=== PATIENT | male | born 1970 | race Two or more races ===

== ENCOUNTER 2019-08-14 06:16 | Inpatient (IN) | payer MEDICARE ==
[~2019-08-14] VITALS: Ht 165.1 cm; Wt 68.2 kg
[2019-08-14] VITALS (56 sets, daily range): BP systolic 99–142; BP diastolic 40–97
[2019-08-14] MEDS ORDERED: SODIUM CHLORIDE 0.9% 1,000 ML IV ONE (06:41)
[2019-08-14] MEDS ORDERED: LEVETIRACETAM 1000MG/100ML 100 ML IV ONE (06:45)
[2019-08-14] MEDS ORDERED: DEXAMETHASONE 10 MG/ML VIAL IV ONE (07:30)
[2019-08-14] MEDS ORDERED: DILTIAZEM HCL 5MG/ML 5ML VIAL IV ONE (07:45)
[2019-08-14 07:55] LABS: BASOPHILS % 0.9 % (0.0-2.0); EOSINOPHILS % 0.6 % (0.0-5.0); HEMATOCRIT. 49.6 % (42.0-52.0); HEMOGLOBIN. 16.3 g/dL (14.0-18.0); LYMPHOCYTES % 20.1 % (20.0-50.0); MEAN CORPUSCULAR HEMOGLOBIN 28.4 pg (28.0-32.0); MEAN CORPUSCULAR VOLUME 86.4 fL (80.0-94.0); MEAN PLATELET VOLUME 8.6 fl (7.4-10.4); MONOCYTES % 6.8 % (2.0-8.0); NEUTROPHILS % 71.6 % (40.0-76.0); PLATELET 199 x1000/uL (130-400); RED BLOOD CELL COUNT 5.74 mill/uL (4.7-6.1); RED CELL DISTRIBUTION WIDTH 13.8 % (11.6-14.6)
[2019-08-14 08:02] LABS: INR 1.1
[2019-08-14 08:04] LABS: CHLORIDE 105 mEq/L (98-107)
[2019-08-14 08:08] LABS: ETHANOL BLOOD < 10 mg/dL
[2019-08-14 08:13] LABS: CREATINE KINASE 122 IU/L (39-308)
[2019-08-14 08:15] LABS: VALPROIC ACID < 3.0 ug/mL (50-100)
[2019-08-14 08:25] LABS: CARBAMAZEPINE < 0.5 ug/mL (4-12); PHENOBARBITAL < 2.1 ug/mL (15.0-40.0)
[2019-08-14] MEDS ORDERED: LEVETIRACETAM 500MG PREMIX 100 ML IV SCH (09:00)
[2019-08-14] MEDS ORDERED: MANNITOL 12.5G (25%) VIAL 50ML IV ONE ×2 (09:15→09:45)
[2019-08-14] MEDS: DEXT 5%/LACTATED RINGERS 1,000 ML IV SCH (09:59)
[2019-08-14] MEDS ORDERED: NICARDIPINE 100 MG in SODIUM CHLORIDE 0.9% 60 ML IV PRN (11:00)
[2019-08-14] MEDS ORDERED: DILTIAZEM HCL 5MG/ML 5ML VIAL IV NR (11:30)
[2019-08-14] MEDS: DEXAMETHASONE 4MG/ML 1ML VIAL IV SCH ×2 (11:35→18:04)
[2019-08-14 11:54] LABS: BG BASE EXCESS -0.6 mmol/L (-2.0-2.0); BG CARBOXYHEMOGLOBIN 0.1 % (0.5-1.5); BG DEOXYHEMOGLOBIN 2.9 % (0.0-5.0); BG FRACTION INSPIRED OXYGEN 21; BG HCO3 ACT 23.5 mmol/L (22.0-26.0); BG METHEMOGLOBIN 0.5 % (0.0-1.5); BG OXYGEN SATURATION 97.1 % (92.0-98.5); BG OXYHEMOGLOBIN 96.5 % (94.0-97.0); BG PCO2 37.8 mmHg (35.0-45.0); BG PH 7.412 (7.350-7.450); BG PO2 91.5 mmHg (75.0-100.0); BG SAMPLE SITE RIGHT RADIAL; BG TOTAL HEMOGLOBIN 18.2 g/dL (12.0-18.0); BG VENT MODE ROOM AIR
[2019-08-14] MEDS ORDERED: DEXAMETHASONE 4MG/ML 1ML VIAL IV SCH (12:00)
[2019-08-14] MEDS ORDERED: DILTIAZEM HCL 125 MG in DEXT 5% WATER 100 ML IV ONE (12:30)
[2019-08-14] MEDS ORDERED: LACTULOSE 300 ML in WATER FOR IRRIGATION,STERILE 700 ML IR NR (12:30)
[2019-08-14] MEDS ORDERED: IOHEXOL-350 100 ML BOTTLE ONE (12:42)
[2019-08-14] MEDS ORDERED: GADOBENATE DIMEGLUMINE 529 MG/ML 10ML IV ONE (13:54)
[2019-08-14] MEDS: DILTIAZEM HCL 125 MG in DEXT 5% WATER 100 ML IV SCH (15:00)
[2019-08-14] MEDS ORDERED: DEXTROSE 50% WATER 50ML SYRINGE IV PRN (16:45)
[2019-08-14] MEDS: BLOOD SUGAR DIAGNOSTIC STRIP TEST SCH ×2 (17:00→21:08)
[2019-08-14] MEDS: INSULIN LISPRO 100 UNITS/ML SUBCUT SCH ×2 (18:05→21:00)
[2019-08-14] MEDS: LEVETIRACETAM 500MG in SODIUM CHLORIDE 0.9% 100ML IV SCH (21:08)
[2019-08-15] VITALS (73 sets, daily range): BP systolic 92–188; BP diastolic 56–124
[2019-08-15] MEDS: DEXAMETHASONE 4MG/ML 1ML VIAL IV SCH ×4 (00:46→19:59)
[2019-08-15] MEDS: MORPHINE SULFATE 2 MG/ML CPJ (NOT FOR IM USE) IV PRN ×2 (01:24→12:04)
[2019-08-15] MEDS: BLOOD SUGAR DIAGNOSTIC STRIP TEST SCH ×2 (05:49→18:00)
[2019-08-15] MEDS: DEXT 5%/LACTATED RINGERS 1,000 ML IV SCH (05:57)
[2019-08-15] MEDS: INSULIN LISPRO 100 UNITS/ML SUBCUT SCH ×2 (06:00→20:00)
[2019-08-15] MEDS ORDERED: NITROGLYCERIN 50MG PREMIX 0 ML IV ONE (06:05)
[2019-08-15] MEDS ORDERED: LIDOCAINE HCL/PF 1% 10 MG/ML 5ML VIAL ONE ×2 (06:06→13:54)
[2019-08-15] MEDS ORDERED: PROPOFOL 200MG/20ML VIAL IV ONE ×2 (06:08→13:38)
[2019-08-15] MEDS ORDERED: ROCURONIUM BROMIDE 10MG/ML VIAL 5ML IV ONE (06:09)
[2019-08-15] MEDS ORDERED: FENTANYL CITRATE/PF 50MCG/ML 2ML VIAL ONE ×2 (06:10→07:06)
[2019-08-15 06:17] LABS: CHLORIDE 106 mEq/L (98-107)
[2019-08-15] MEDS ORDERED: BACITRACIN 15GM TUBE TOP ONE ×2 (06:25→17:19)
[2019-08-15] MEDS ORDERED: THROMBIN (BOVINE) 5000 UNITS/VIAL TOP ONE ×4 (06:25→16:03)
[2019-08-15] MEDS ORDERED: LIDOCAINE HCL/EPINEPHRINE 1%-EPI 1:100,000 20 ML VIAL ONE (06:26)
[2019-08-15] MEDS ORDERED: BACITRACIN 50,000 UNITS/VIAL ONE (06:26)
[2019-08-15] MEDS ORDERED: MANNITOL 20% 0 ML IV ONE (06:27)
[2019-08-15] MEDS ORDERED: LEVETIRACETAM 500 MG IV ONE (06:27)
[2019-08-15 06:30] LABS: HEMOGLOBIN. 16.6 g/dL (14.0-18.0); MEAN CORPUSCULAR HEMOGLOBIN 28.7 pg (28.0-32.0); MEAN CORPUSCULAR VOLUME 86.2 fL (80.0-94.0); MEAN PLATELET VOLUME 8.9 fl (7.4-10.4); PLATELET 223 x1000/uL (130-400); RED CELL DISTRIBUTION WIDTH 13.9 % (11.6-14.6)
[2019-08-15 06:31] LABS: T4 FREE 1.11 ng/dL (0.76-1.46)
[2019-08-15] MEDS ORDERED: MIDAZOLAM HCL 2 MG/2 ML VIAL ONE (07:05)
[2019-08-15] MEDS ORDERED: EPHEDRINE SULFATE 50MG/ML VIAL ONE ×2 (07:08→15:44)
[2019-08-15] MEDS ORDERED: SODIUM CHLORIDE 0.9% 10ML VIAL ONE ×5 (07:09→16:54)
[2019-08-15 08:42] LABS: PLATELET ESTIMATE NORMAL
[2019-08-15] MEDS: LEVETIRACETAM 500MG in SODIUM CHLORIDE 0.9% 100ML IV SCH ×2 (08:59→20:20)
[2019-08-15] MEDS: DILTIAZEM HCL 125 MG in DEXT 5% WATER 100 ML IV SCH (09:39)
[2019-08-15 11:06] LABS: PHOSPHORUS 3.2 mg/dL (2.5-4.9)
[2019-08-15] MEDS ORDERED: POTASSIUM CHLORIDE INJ 40 MEQ in SODIUM CHLORIDE 0.9% 250 ML IV NR (12:00)
[2019-08-15] MEDS ORDERED: LIDOCAINE HCL 1% 20ML VIAL (Pyxis) INJ ONE (13:10)
[2019-08-15] MEDS ORDERED: SODIUM BICARBONATE 4% (2.4MEQ) 5ML VIAL IV ONE ×2 (13:11→15:59)
[2019-08-15] MEDS ORDERED: FENTANYL CITRATE/PF 50MCG/ML 5ML VIAL ONE (13:37)
[2019-08-15] MEDS ORDERED: PHENYLEPHRINE HCL 10 MG/ML 1ML (IV VIAL) IV ONE ×2 (13:42→13:46)
[2019-08-15] MEDS ORDERED: CEFAZOLIN SODIUM 1000MG/VIAL ONE (13:43)
[2019-08-15] MEDS ORDERED: LABETALOL HCL 5MG/ML VIAL 20ML IV ONE (13:46)
[2019-08-15] MEDS ORDERED: MANNITOL 20% 500 ML IV ONE (13:49)
[2019-08-15] MEDS ORDERED: FUROSEMIDE 40MG/4ML VIAL ONE (13:49)
[2019-08-15] MEDS ORDERED: PROPOFOL 10MG/ML 100ML 100 ML IV ONE (15:28)
[2019-08-15 15:32] LABS: BG CARBOXYHEMOGLOBIN 0.3 % (0.5-1.5); BG DEOXYHEMOGLOBIN 0.9 % (0.0-5.0); BG FRACTION INSPIRED OXYGEN 100; BG HCO3 ACT 16.8 mmol/L (22.0-26.0); BG METHEMOGLOBIN 0.2 % (0.0-1.5); BG OXYHEMOGLOBIN 98.6 % (94.0-97.0); BG PH 7.412 (7.350-7.450); BG PO2 440.4 mmHg (75.0-100.0); BG SAMPLE SITE A-LINE; BG TOTAL HEMOGLOBIN 12.5 g/dL (12.0-18.0); BG VENT MODE VENT - A/C
[2019-08-15] MEDS ORDERED: ALBUMIN HUMAN 12.5G/250ML (5%) IV ONE ×2 (15:32→16:27)
[2019-08-15] MEDS ORDERED: SODIUM BICARBONATE 8.4% 1 MEQ/ML 50ML SYR IV ONE (15:58)
[2019-08-15] MEDS ORDERED: DEXMEDETOMIDINE 400 MCG/100 ML 100 ML IV ONE (16:15)
[2019-08-15] MEDS ORDERED: ALBUMIN HUMAN 12.5GM/50ML (25%) IV ONE (16:29)
[2019-08-15] MEDS ORDERED: ONDANSETRON HCL 4MG/2ML INJ ONE (16:51)
[2019-08-15] MEDS ORDERED: BUPIVACAINE HCL 0.5% (5MG/ML) 50ML ONE (16:52)
[2019-08-15] MEDS ORDERED: HYDROMORPHONE HCL/PF 2MG/ML (OR) ONE (16:53)
[2019-08-15] MEDS ORDERED: BUPIVACAINE HCL/PF 0.25% (2.5MG/ML) 10ML ONE (16:54)
[2019-08-15] MEDS ORDERED: METOCLOPRAMIDE HCL 10MG/2ML VIAL ONE (16:55)
[2019-08-15] MEDS ORDERED: GLYCOPYRROLATE 0.2 MG/ML 2ML VIAL ONE (17:01)
[2019-08-15] MEDS ORDERED: NEOSTIGMINE METHYLSULFATE 1MG/ML 10 ML VIAL ONE (17:01)
[2019-08-15] MEDS ORDERED: LEVETIRACETAM 500MG PREMIX 100 ML IV ONE (17:13)
[2019-08-15] MEDS ORDERED: NICARDIPINE 100 MG in SODIUM CHLORIDE 0.9% 60 ML IV PRN (17:30)
[2019-08-15] MEDS: MORPHINE SULFATE 4 MG/ML CPJ (NOT FOR IM USE) IV PRN (19:44)
[2019-08-15] MEDS: CEFAZOLIN 1000MG PREMIX 50 ML IV SCH (19:59)
[2019-08-15 21:02] LABS: HEMATOCRIT 35.8 % (42.0-52.0); HEMOGLOBIN 11.9 g/dL (14.0-18.0)
[2019-08-15] MEDS ORDERED: CEFAZOLIN SODIUM 1000MG/VIAL IV SCH (22:00)
[2019-08-16] VITALS (93 sets, daily range): BP systolic 2–168; BP diastolic 0–95
[2019-08-16] MEDS: MORPHINE SULFATE 4 MG/ML CPJ (NOT FOR IM USE) IV PRN ×7 (00:16→22:51)
[2019-08-16] MEDS: BLOOD SUGAR DIAGNOSTIC STRIP TEST SCH ×4 (00:32→18:30)
[2019-08-16] MEDS: DEXAMETHASONE 4MG/ML 1ML VIAL IV SCH ×4 (00:35→17:16)
[2019-08-16] MEDS: INSULIN LISPRO 100 UNITS/ML SUBCUT SCH ×4 (00:35→17:17)
[2019-08-16] MEDS: DEXT 5%/LACTATED RINGERS 1,000 ML IV SCH ×2 (01:59→21:59)
[2019-08-16] MEDS: CEFAZOLIN 1000MG PREMIX 50 ML IV SCH ×3 (04:05→21:03)
[2019-08-16] MEDS: NICARDIPINE 100 MG in SODIUM CHLORIDE 0.9% 60 ML IV PRN (04:38)
[2019-08-16 06:22] LABS: CHLORIDE 114 mEq/L (98-107)
[2019-08-16 06:37] LABS: HEMATOCRIT. 35.6 % (42.0-52.0); HEMOGLOBIN. 11.9 g/dL (14.0-18.0); MEAN CORPUSCULAR HEMOGLOBIN 28.4 pg (28.0-32.0); MEAN CORPUSCULAR VOLUME 85.4 fL (80.0-94.0); MEAN PLATELET VOLUME 9.1 fl (7.4-10.4); PLATELET 184 x1000/uL (130-400); RED BLOOD CELL COUNT 4.17 mill/uL (4.7-6.1); RED CELL DISTRIBUTION WIDTH 13.8 % (11.6-14.6)
[2019-08-16] MEDS ORDERED: MANNITOL 20% (20GM/100ML) BAG 500ML PREMIX IV ONE (06:45)
[2019-08-16] MEDS ORDERED: MANNITOL 20% 125 ML IV ONE (06:45)
[2019-08-16] MEDS ORDERED: DEXAMETHASONE 10 MG/ML VIAL IV ONE (07:00)
[2019-08-16] MEDS ORDERED: MANNITOL 12.5G (25%) VIAL 50ML IV ONE (07:30)
[2019-08-16 08:17] LABS: BG CARBOXYHEMOGLOBIN 0.3 % (0.5-1.5); BG DEOXYHEMOGLOBIN 0.9 % (0.0-5.0); BG FRACTION INSPIRED OXYGEN 100; BG HCO3 ACT 20.1 mmol/L (22.0-26.0); BG METHEMOGLOBIN 0.5 % (0.0-1.5); BG OXYGEN SATURATION 99.1 % (92.0-98.5); BG OXYHEMOGLOBIN 98.3 % (94.0-97.0); BG PCO2 30.4 mmHg (35.0-45.0); BG PH 7.439 (7.350-7.450); BG PO2 426.3 mmHg (75.0-100.0); BG SAMPLE SITE A-LINE; BG TOTAL HEMOGLOBIN 12.7 g/dL (12.0-18.0); BG VENT MODE MASK - NRB
[2019-08-16] MEDS ORDERED: PHENYTOIN SODIUM 250MG/5ML VIAL IV ONE (08:19)
[2019-08-16] MEDS ORDERED: MANNITOL 20% 500 ML IV ONE (08:20)
[2019-08-16] MEDS ORDERED: NITROGLYCERIN 50MG PREMIX 0 ML IV ONE (08:20)
[2019-08-16] MEDS ORDERED: LIDOCAINE HCL/EPINEPHRINE 1%-EPI 1:100,000 20 ML VIAL ONE (08:22)
[2019-08-16] MEDS ORDERED: ROCURONIUM BROMIDE 10MG/ML VIAL 5ML IV ONE (08:22)
[2019-08-16] MEDS ORDERED: THROMBIN (BOVINE) 5000 UNITS/VIAL TOP ONE (08:23)
[2019-08-16] MEDS ORDERED: NORMAL SALINE 0.9% 10 ML SYR ONE (08:23)
[2019-08-16] MEDS ORDERED: BACITRACIN 50,000 UNITS/VIAL ONE (08:24)
[2019-08-16] MEDS ORDERED: BACITRACIN 15GM TUBE TOP ONE (08:24)
[2019-08-16] MEDS ORDERED: LACTATED RINGERS 3,000 ML IV ONE (08:24)
[2019-08-16] MEDS ORDERED: FENTANYL CITRATE/PF 50MCG/ML 2ML VIAL ONE ×2 (10:10→11:08)
[2019-08-16] MEDS ORDERED: CEFAZOLIN SODIUM 1000MG/VIAL ONE (10:10)
[2019-08-16] MEDS ORDERED: MIDAZOLAM HCL 2 MG/2 ML VIAL ONE ×2 (10:10→11:08)
[2019-08-16] MEDS ORDERED: PHENYLEPHRINE HCL 10 MG/ML 1ML (IV VIAL) IV ONE (10:10)
[2019-08-16] MEDS ORDERED: PROPOFOL 200MG/20ML VIAL IV ONE (10:10)
[2019-08-16] MEDS ORDERED: ESMOLOL HCL 10MG/ML 10ML VIAL IV ONE (10:10)
[2019-08-16] MEDS ORDERED: LIDOCAINE HCL/PF 1% 10 MG/ML 5ML VIAL ONE (10:10)
[2019-08-16] MEDS ORDERED: MANNITOL 20% 125 ML IV SCH (11:00)
[2019-08-16] MEDS: MORPHINE SULFATE 2 MG/ML CPJ (NOT FOR IM USE) IV PRN ×3 (11:00→19:14)
[2019-08-16] MEDS ORDERED: PROPOFOL 10MG/ML 100ML 100 ML IV PRN (11:45)
[2019-08-16 12:22] LABS: BG BASE EXCESS -2.6 mmol/L (-2.0-2.0); BG CARBOXYHEMOGLOBIN 0.3 % (0.5-1.5); BG DEOXYHEMOGLOBIN 2.2 % (0.0-5.0); BG FRACTION INSPIRED OXYGEN 30; BG HCO3 ACT 21.7 mmol/L (22.0-26.0); BG METHEMOGLOBIN 0.1 % (0.0-1.5); BG OXYGEN SATURATION 97.8 % (92.0-98.5); BG OXYHEMOGLOBIN 97.4 % (94.0-97.0); BG PCO2 35.9 mmHg (35.0-45.0); BG PH 7.399 (7.350-7.450); BG PO2 115.3 mmHg (75.0-100.0); BG SAMPLE SITE A-LINE; BG TIDAL VOLUME(mL) 500 mL; BG TOTAL HEMOGLOBIN 11.9 g/dL (12.0-18.0); BG VENT MODE VENT - A/C; BG VENT RATE 14 set
[2019-08-16] MEDS: LEVETIRACETAM 500MG in SODIUM CHLORIDE 0.9% 100ML IV SCH ×2 (14:30→21:32)
[2019-08-16] MEDS ORDERED: LIDOCAINE HCL 1% 20ML VIAL (Pyxis) INJ ONE (14:31)
[2019-08-16] MEDS: DILTIAZEM HCL 125 MG in DEXT 5% WATER 100 ML IV SCH (15:00)
[2019-08-16 16:37] LABS: HEMATOCRIT 32.4 % (42.0-52.0); HEMOGLOBIN 10.9 g/dL (14.0-18.0)
[2019-08-16 18:43] LABS: PLATELET ESTIMATE NORMAL
[2019-08-16 18:46] LABS: CLARITY URINE CLEAR (CLEAR); COLOR URINE YELLOW (YELLOW); KETONES URINE NEGATIVE (NEGATIVE); LEUKOCYTE ESTERASE URINE NEGATIVE (NEGATIVE); NITRITE URINE NEGATIVE (NEGATIVE); OCCULT BLOOD URINE NEGATIVE (NEGATIVE); PH URINE 5.5 (4.5-8.0); PROTEIN URINE NEGATIVE (NEGATIVE); SPECIFIC GRAVITY URINE 1.016 (1.005-1.030); UROBILINOGEN URINE 0.2 E.U./dL (0.2-1.0)
[2019-08-16] MEDS: ACETAMINOPHEN 650MG SUPP PR PRN (19:37)
[2019-08-16 23:44] LABS: HEMATOCRIT 30.5 % (42.0-52.0); HEMOGLOBIN 10.3 g/dL (14.0-18.0)
[2019-08-17] VITALS (102 sets, daily range): BP systolic 101–174; BP diastolic 49–81
[2019-08-17] MEDS: BLOOD SUGAR DIAGNOSTIC STRIP TEST SCH ×4 (00:42→17:55)
[2019-08-17] MEDS: INSULIN LISPRO 100 UNITS/ML SUBCUT SCH ×4 (00:43→17:55)
[2019-08-17] MEDS: DEXAMETHASONE 4MG/ML 1ML VIAL IV SCH ×4 (00:43→17:53)
[2019-08-17] MEDS: CEFAZOLIN 1000MG PREMIX 50 ML IV SCH ×3 (04:30→19:59)
[2019-08-17] MEDS: MORPHINE SULFATE 4 MG/ML CPJ (NOT FOR IM USE) IV PRN ×5 (05:02→21:34)
[2019-08-17 05:33] LABS: HEMATOCRIT. 32.9 % (42.0-52.0); MEAN CORPUSCULAR HEMOGLOBIN 28.9 pg (28.0-32.0); MEAN CORPUSCULAR VOLUME 85.8 fL (80.0-94.0); PLATELET 152 x1000/uL (130-400); RED BLOOD CELL COUNT 3.83 mill/uL (4.7-6.1); RED CELL DISTRIBUTION WIDTH 13.7 % (11.6-14.6)
[2019-08-17 05:42] LABS: CHLORIDE 117 mEq/L (98-107)
[2019-08-17] MEDS: NICARDIPINE 100 MG in SODIUM CHLORIDE 0.9% 60 ML IV PRN (08:29)
[2019-08-17] MEDS: LEVETIRACETAM 500MG in SODIUM CHLORIDE 0.9% 100ML IV SCH ×2 (08:29→21:30)
[2019-08-17] MEDS ORDERED: POTASSIUM CHLORIDE INJ 40 MEQ in DEXT 5% WATER 250 ML IV NR (12:00)
[2019-08-17 12:07] LABS: PLATELET ESTIMATE NORMAL
[2019-08-17 14:50] LABS: BG BASE EXCESS 1.4 mmol/L (-2.0-2.0); BG CARBOXYHEMOGLOBIN 0.3 % (0.5-1.5); BG DEOXYHEMOGLOBIN 1.6 % (0.0-5.0); BG FRACTION INSPIRED OXYGEN 30; BG HCO3 ACT 24.7 mmol/L (22.0-26.0); BG METHEMOGLOBIN 0.3 % (0.0-1.5); BG OXYGEN SATURATION 98.4 % (92.0-98.5); BG OXYHEMOGLOBIN 97.8 % (94.0-97.0); BG PCO2 34.5 mmHg (35.0-45.0); BG PH 7.473 (7.350-7.450); BG PO2 145.6 mmHg (75.0-100.0); BG PRESSURE SUPPORT 10; BG SAMPLE SITE RIGHT RADIAL; BG VENT MODE VENT - CPAP
[2019-08-17] MEDS: DILTIAZEM HCL 125 MG in DEXT 5% WATER 100 ML IV SCH (15:00)
[2019-08-17] MEDS: MORPHINE SULFATE 2 MG/ML CPJ (NOT FOR IM USE) IV PRN (17:53)
[2019-08-17] MEDS: DEXT 5%/LACTATED RINGERS 1,000 ML IV SCH (17:55)
[2019-08-18] VITALS (103 sets, daily range): BP systolic 99–180; BP diastolic 47–100
[2019-08-18] MEDS: BLOOD SUGAR DIAGNOSTIC STRIP TEST SCH ×5 (00:06→23:58)
[2019-08-18] MEDS: DEXAMETHASONE 4MG/ML 1ML VIAL IV SCH ×2 (00:06→08:48)
[2019-08-18] MEDS: INSULIN LISPRO 100 UNITS/ML SUBCUT SCH ×5 (00:08→23:56)
[2019-08-18] MEDS: MORPHINE SULFATE 4 MG/ML CPJ (NOT FOR IM USE) IV PRN ×9 (00:37→23:29)
[2019-08-18] MEDS: MORPHINE SULFATE 2 MG/ML CPJ (NOT FOR IM USE) IV PRN (04:13)
[2019-08-18] MEDS: NICARDIPINE 100 MG in SODIUM CHLORIDE 0.9% 60 ML IV PRN ×2 (05:48→22:30)
[2019-08-18 06:11] LABS: CHLORIDE 120 mEq/L (98-107)
[2019-08-18 06:14] LABS: HEMATOCRIT. 29.6 % (42.0-52.0); HEMOGLOBIN. 9.9 g/dL (14.0-18.0); MEAN CORPUSCULAR HEMOGLOBIN 28.9 pg (28.0-32.0); MEAN CORPUSCULAR VOLUME 86.1 fL (80.0-94.0); PLATELET 147 x1000/uL (130-400); RED BLOOD CELL COUNT 3.44 mill/uL (4.7-6.1); RED CELL DISTRIBUTION WIDTH 14.2 % (11.6-14.6)
[2019-08-18] MEDS: LEVETIRACETAM 500MG in SODIUM CHLORIDE 0.9% 100ML IV SCH ×2 (08:49→21:31)
[2019-08-18 09:28] LABS: BG BASE EXCESS 1.9 mmol/L (-2.0-2.0); BG CARBOXYHEMOGLOBIN 0.3 % (0.5-1.5); BG DEOXYHEMOGLOBIN 1.4 % (0.0-5.0); BG FRACTION INSPIRED OXYGEN 30; BG HCO3 ACT 25.3 mmol/L (22.0-26.0); BG METHEMOGLOBIN 0.3 % (0.0-1.5); BG OXYGEN SATURATION 98.6 % (92.0-98.5); BG PCO2 35.3 mmHg (35.0-45.0); BG PH 7.474 (7.350-7.450); BG PO2 157.1 mmHg (75.0-100.0); BG SAMPLE SITE RIGHT RADIAL; BG TIDAL VOLUME(mL) 500 mL; BG TOTAL HEMOGLOBIN 10.9 g/dL (12.0-18.0); BG VENT MODE VENT - A/C; BG VENT RATE 14 set
[2019-08-18] MEDS ORDERED: POTASSIUM CHLORIDE INJ 40 MEQ in DEXT 5% WATER 250 ML IV NR (12:00)
[2019-08-18] MEDS: PANTOPRAZOLE SODIUM 40 MG/VIAL IV SCH (12:23)
[2019-08-18 14:35] LABS: PLATELET ESTIMATE NORMAL
[2019-08-18] MEDS: DILTIAZEM HCL 125 MG in DEXT 5% WATER 100 ML IV SCH (15:00)
[2019-08-18] MEDS: CEFAZOLIN 1000MG PREMIX 50 ML IV SCH (18:22)
[2019-08-18] MEDS: DEXT 5%/LACTATED RINGERS 1,000 ML IV SCH (18:24)
[2019-08-19] VITALS (99 sets, daily range): BP systolic 97–155; BP diastolic 1–116
[2019-08-19] MEDS: CEFAZOLIN 1000MG PREMIX 50 ML IV SCH ×3 (02:23→17:11)
[2019-08-19] MEDS: MORPHINE SULFATE 4 MG/ML CPJ (NOT FOR IM USE) IV PRN ×7 (02:32→21:12)
[2019-08-19] MEDS: IPRATROPIUM/ALBUTEROL 0.5-3(2.5)MG/3ML NEB HHN PRN (03:23)
[2019-08-19 03:58] LABS: BG BASE EXCESS 1.3 mmol/L (-2.0-2.0); BG CARBOXYHEMOGLOBIN 0.3 % (0.5-1.5); BG DEOXYHEMOGLOBIN 7.7 % (0.0-5.0); BG FRACTION INSPIRED OXYGEN 30; BG HCO3 ACT 24.4 mmol/L (22.0-26.0); BG METHEMOGLOBIN 0.2 % (0.0-1.5); BG OXYGEN SATURATION 92.3 % (92.0-98.5); BG OXYHEMOGLOBIN 91.8 % (94.0-97.0); BG PCO2 33.7 mmHg (35.0-45.0); BG PH 7.478 (7.350-7.450); BG PO2 64.3 mmHg (75.0-100.0); BG SAMPLE SITE A-LINE; BG TIDAL VOLUME(mL) 500 mL; BG TOTAL HEMOGLOBIN 11.4 g/dL (12.0-18.0); BG VENT MODE VENT - A/C; BG VENT RATE 14 set
[2019-08-19 05:50] LABS: HEMATOCRIT. 29.8 % (42.0-52.0); MEAN CORPUSCULAR HEMOGLOBIN 29.1 pg (28.0-32.0); MEAN CORPUSCULAR VOLUME 86.9 fL (80.0-94.0); MEAN PLATELET VOLUME 9.5 fl (7.4-10.4); PLATELET 163 x1000/uL (130-400); RED BLOOD CELL COUNT 3.43 mill/uL (4.7-6.1); RED CELL DISTRIBUTION WIDTH 13.9 % (11.6-14.6)
[2019-08-19 05:56] LABS: CHLORIDE 121 mEq/L (98-107)
[2019-08-19] MEDS: INSULIN LISPRO 100 UNITS/ML SUBCUT SCH ×4 (06:05→23:58)
[2019-08-19] MEDS: BLOOD SUGAR DIAGNOSTIC STRIP TEST SCH ×4 (06:23→23:57)
[2019-08-19 07:18] LABS: PLATELET ESTIMATE NORMAL
[2019-08-19 08:12] LABS: BG BASE EXCESS -0.9 mmol/L (-2.0-2.0); BG CARBOXYHEMOGLOBIN 0.5 % (0.5-1.5); BG DEOXYHEMOGLOBIN 4.6 % (0.0-5.0); BG HCO3 ACT 21.8 mmol/L (22.0-26.0); BG METHEMOGLOBIN 0.2 % (0.0-1.5); BG OXYGEN SATURATION 95.4 % (92.0-98.5); BG OXYHEMOGLOBIN 94.7 % (94.0-97.0); BG PO2 75.2 mmHg (75.0-100.0); BG SAMPLE SITE A-LINE; BG TIDAL VOLUME(mL) 500 mL; BG TOTAL HEMOGLOBIN 11.5 g/dL (12.0-18.0); BG VENT MODE VENT - A/C; BG VENT RATE 14 set
[2019-08-19] MEDS: DEXAMETHASONE 4MG/ML 1ML VIAL IV SCH (08:34)
[2019-08-19] MEDS: PANTOPRAZOLE SODIUM 40 MG/VIAL IV SCH (08:34)
[2019-08-19] MEDS: LEVETIRACETAM 500MG in SODIUM CHLORIDE 0.9% 100ML IV SCH ×2 (08:34→20:05)
[2019-08-19] MEDS ORDERED: POTASSIUM CHLORIDE INJ 40 MEQ in DEXT 5% WATER 250 ML IV SCH (11:00)
[2019-08-19] MEDS: METOPROLOL TARTRATE 5MG/5ML VIAL IV SCH ×2 (12:00→17:35)
[2019-08-19] MEDS: NITROPRUSSIDE IV PRN (18:52)
[2019-08-19] MEDS: WATER IV PRN (18:52)
[2019-08-19] MEDS: DEXT 5% IV PRN (18:52)
[2019-08-19] MEDS: DEXT 5%/LACTATED RINGERS 1,000 ML IV SCH (20:06)
[2019-08-20] VITALS (103 sets, daily range): BP systolic 95–198; BP diastolic 51–140
[2019-08-20] MEDS: MORPHINE SULFATE 4 MG/ML CPJ (NOT FOR IM USE) IV PRN ×8 (00:25→21:52)
[2019-08-20] MEDS: CEFAZOLIN 1000MG PREMIX 50 ML IV SCH ×3 (00:30→16:49)
[2019-08-20] MEDS: METOPROLOL TARTRATE 5MG/5ML VIAL IV SCH ×5 (05:48→23:41)
[2019-08-20] MEDS: BLOOD SUGAR DIAGNOSTIC STRIP TEST SCH ×4 (06:00→23:41)
[2019-08-20 06:21] LABS: HEMATOCRIT. 29.2 % (42.0-52.0); HEMOGLOBIN. 9.8 g/dL (14.0-18.0); MEAN CORPUSCULAR HEMOGLOBIN 28.8 pg (28.0-32.0); MEAN CORPUSCULAR VOLUME 86.3 fL (80.0-94.0); MEAN PLATELET VOLUME 9.7 fl (7.4-10.4); PLATELET 157 x1000/uL (130-400); RED BLOOD CELL COUNT 3.39 mill/uL (4.7-6.1); RED CELL DISTRIBUTION WIDTH 14.2 % (11.6-14.6)
[2019-08-20 06:26] LABS: CHLORIDE 122 mEq/L (98-107)
[2019-08-20] MEDS: DEXT 5%/LACTATED RINGERS 1,000 ML IV SCH (07:00)
[2019-08-20] MEDS: INSULIN LISPRO 100 UNITS/ML SUBCUT SCH ×4 (07:31→23:41)
[2019-08-20] MEDS: DEXAMETHASONE 4MG/ML 1ML VIAL IV SCH (08:30)
[2019-08-20] MEDS: PANTOPRAZOLE SODIUM 40 MG/VIAL IV SCH (08:30)
[2019-08-20] MEDS: LEVETIRACETAM 500MG in SODIUM CHLORIDE 0.9% 100ML IV SCH ×2 (09:10→21:16)
[2019-08-20 09:13] LABS: BG BASE EXCESS -0.2 mmol/L (-2.0-2.0); BG CARBOXYHEMOGLOBIN 0.3 % (0.5-1.5); BG DEOXYHEMOGLOBIN 4.8 % (0.0-5.0); BG FRACTION INSPIRED OXYGEN 40; BG HCO3 ACT 22.8 mmol/L (22.0-26.0); BG METHEMOGLOBIN 0.1 % (0.0-1.5); BG OXYGEN SATURATION 95.2 % (92.0-98.5); BG OXYHEMOGLOBIN 94.8 % (94.0-97.0); BG PCO2 31.2 mmHg (35.0-45.0); BG PH 7.482 (7.350-7.450); BG PO2 79.3 mmHg (75.0-100.0); BG SAMPLE SITE A-LINE; BG TIDAL VOLUME(mL) 500 mL; BG VENT MODE VENT - A/C; BG VENT RATE 14 set
[2019-08-20 14:58] LABS: PLATELET ESTIMATE NORMAL
[2019-08-21] VITALS (95 sets, daily range): BP systolic 78–173; BP diastolic 45–115
[2019-08-21] MEDS: CEFAZOLIN 1000MG PREMIX 50 ML IV SCH ×3 (01:18→17:20)
[2019-08-21] MEDS: MORPHINE SULFATE 4 MG/ML CPJ (NOT FOR IM USE) IV PRN ×3 (03:05→08:15)
[2019-08-21] MEDS: NITROPRUSSIDE IV PRN (03:12)
[2019-08-21] MEDS: DEXT 5% IV PRN (03:12)
[2019-08-21] MEDS: WATER IV PRN (03:12)
[2019-08-21 04:16] LABS: HEMATOCRIT. 26.8 % (42.0-52.0); HEMOGLOBIN. 8.7 g/dL (14.0-18.0); MEAN CORPUSCULAR HEMOGLOBIN 28.3 pg (28.0-32.0); MEAN CORPUSCULAR VOLUME 86.7 fL (80.0-94.0); MEAN PLATELET VOLUME 9.5 fl (7.4-10.4); PLATELET 141 x1000/uL (130-400); RED BLOOD CELL COUNT 3.09 mill/uL (4.7-6.1); RED CELL DISTRIBUTION WIDTH 14.3 % (11.6-14.6)
[2019-08-21 04:18] LABS: CHLORIDE 124 mEq/L (98-107)
[2019-08-21] MEDS: METOPROLOL TARTRATE 5MG/5ML VIAL IV SCH ×4 (05:03→23:19)
[2019-08-21] MEDS: INSULIN LISPRO 100 UNITS/ML SUBCUT SCH ×4 (06:16→23:20)
[2019-08-21] MEDS: BLOOD SUGAR DIAGNOSTIC STRIP TEST SCH ×4 (06:17→23:20)
[2019-08-21 08:18] LABS: BG BASE EXCESS 2.8 mmol/L (-2.0-2.0); BG CARBOXYHEMOGLOBIN 0.2 % (0.5-1.5); BG DEOXYHEMOGLOBIN 2.8 % (0.0-5.0); BG FRACTION INSPIRED OXYGEN 50; BG HCO3 ACT 25.6 mmol/L (22.0-26.0); BG METHEMOGLOBIN 0.3 % (0.0-1.5); BG OXYGEN SATURATION 97.2 % (92.0-98.5); BG OXYHEMOGLOBIN 96.7 % (94.0-97.0); BG PCO2 32.7 mmHg (35.0-45.0); BG PH 7.512 (7.350-7.450); BG PO2 103.6 mmHg (75.0-100.0); BG SAMPLE SITE A-LINE; BG TIDAL VOLUME(mL) 500 mL; BG TOTAL HEMOGLOBIN 9.7 g/dL (12.0-18.0); BG VENT MODE VENT - A/C; BG VENT RATE 14 set
[2019-08-21] MEDS: PANTOPRAZOLE SODIUM 40 MG/VIAL IV SCH (08:41)
[2019-08-21] MEDS: LEVETIRACETAM 500MG in SODIUM CHLORIDE 0.9% 100ML IV SCH ×2 (08:41→20:14)
[2019-08-21] MEDS ORDERED: MORPHINE SULFATE 4 MG/ML CPJ (NOT FOR IM USE) IV PRN (09:30)
[2019-08-21] MEDS: DEXT 5%/LACTATED RINGERS 1,000 ML IV SCH (10:35)
[2019-08-21] MEDS: MORPHINE SULFATE 2 MG/ML CPJ (NOT FOR IM USE) IV PRN ×4 (11:11→21:26)
[2019-08-21 13:18] LABS: NUCLEATED RED BLOOD CELLS 1 /100 WBC; PLATELET ESTIMATE NORMAL
[2019-08-21] MEDS: DILTIAZEM HCL 125 MG in DEXT 5% WATER 100 ML IV SCH (15:00)
[2019-08-21 17:13] LABS: BG CARBOXYHEMOGLOBIN 0.3 % (0.5-1.5); BG DEOXYHEMOGLOBIN 3.7 % (0.0-5.0); BG FRACTION INSPIRED OXYGEN 50; BG HCO3 ACT 28.3 mmol/L (22.0-26.0); BG METHEMOGLOBIN 0.2 % (0.0-1.5); BG OXYGEN SATURATION 96.3 % (92.0-98.5); BG OXYHEMOGLOBIN 95.8 % (94.0-97.0); BG PCO2 36.4 mmHg (35.0-45.0); BG PH 7.508 (7.350-7.450); BG PO2 89.4 mmHg (75.0-100.0); BG PRESSURE SUPPORT 10; BG SAMPLE SITE RIGHT RADIAL; BG TOTAL HEMOGLOBIN 9.4 g/dL (12.0-18.0); BG VENT MODE VENT - CPAP
[2019-08-21] MEDS: ACETAMINOPHEN 650MG/20.3ML UDC PO PRN (17:20)
[2019-08-22] VITALS (95 sets, daily range): BP systolic 91–151; BP diastolic 47–114
[2019-08-22] MEDS: MORPHINE SULFATE 2 MG/ML CPJ (NOT FOR IM USE) IV PRN ×2 (00:57→04:36)
[2019-08-22] MEDS: CEFAZOLIN 1000MG PREMIX 50 ML IV SCH ×3 (00:57→17:50)
[2019-08-22] MEDS: NITROPRUSSIDE IV PRN (01:45)
[2019-08-22] MEDS: DEXT 5% IV PRN (01:45)
[2019-08-22] MEDS: WATER IV PRN (01:45)
[2019-08-22] MEDS: DEXT 5%/LACTATED RINGERS 1,000 ML IV SCH (04:05)
[2019-08-22] MEDS: INSULIN LISPRO 100 UNITS/ML SUBCUT SCH ×3 (05:48→17:56)
[2019-08-22] MEDS: METOPROLOL TARTRATE 5MG/5ML VIAL IV SCH (05:48)
[2019-08-22] MEDS: BLOOD SUGAR DIAGNOSTIC STRIP TEST SCH ×3 (05:48→18:00)
[2019-08-22 05:58] LABS: HEMATOCRIT 26.5 % (42.0-52.0); HEMOGLOBIN 8.7 g/dL (14.0-18.0); MEAN CORPUSCULAR HEMOGLOBIN 28.6 pg (28.0-32.0); MEAN CORPUSCULAR VOLUME 87.2 fL (80.0-94.0); PLATELET 142 x1000/uL (130-400); RED BLOOD CELL COUNT 3.04 mill/uL (4.7-6.1); RED CELL DISTRIBUTION WIDTH 14.1 % (11.6-14.6)
[2019-08-22 06:06] LABS: CHLORIDE 124 mEq/L (98-107)
[2019-08-22] MEDS: PANTOPRAZOLE SODIUM 40 MG/VIAL IV SCH (08:23)
[2019-08-22] MEDS: LEVETIRACETAM 500MG in SODIUM CHLORIDE 0.9% 100ML IV SCH ×2 (08:23→21:43)
[2019-08-22 09:08] LABS: BG BASE EXCESS 3.4 mmol/L (-2.0-2.0); BG CARBOXYHEMOGLOBIN 0.3 % (0.5-1.5); BG DEOXYHEMOGLOBIN 1.6 % (0.0-5.0); BG FRACTION INSPIRED OXYGEN 40; BG HCO3 ACT 27.2 mmol/L (22.0-26.0); BG METHEMOGLOBIN 0.3 % (0.0-1.5); BG OXYGEN SATURATION 98.4 % (92.0-98.5); BG OXYHEMOGLOBIN 97.8 % (94.0-97.0); BG PCO2 38.1 mmHg (35.0-45.0); BG PH 7.472 (7.350-7.450); BG PO2 153.8 mmHg (75.0-100.0); BG PRESSURE SUPPORT 10; BG SAMPLE SITE RIGHT RADIAL; BG TOTAL HEMOGLOBIN 8.8 g/dL (12.0-18.0); BG VENT MODE VENT - CPAP
[2019-08-22] MEDS: DEXT 5%/0.45% NACL 1000ML 1,000 ML IV SCH ×2 (09:34→17:50)
[2019-08-22] MEDS: AMLODIPINE 5MG TABLET PO SCH ×2 (11:31→21:46)
[2019-08-22] MEDS: LOSARTAN POTASSIUM 25 MG TABLET PO SCH (11:32)
[2019-08-22 18:24] LABS: BG BASE EXCESS 0.4 mmol/L (-2.0-2.0); BG CARBOXYHEMOGLOBIN 0.3 % (0.5-1.5); BG DEOXYHEMOGLOBIN 5.7 % (0.0-5.0); BG FRACTION INSPIRED OXYGEN 50; BG HCO3 ACT 22.9 mmol/L (22.0-26.0); BG METHEMOGLOBIN 0.3 % (0.0-1.5); BG OXYGEN SATURATION 94.3 % (92.0-98.5); BG OXYHEMOGLOBIN 93.7 % (94.0-97.0); BG PCO2 29.3 mmHg (35.0-45.0); BG PH 7.511 (7.350-7.450); BG PO2 70.8 mmHg (75.0-100.0); BG SAMPLE SITE RIGHT RADIAL; BG TOTAL HEMOGLOBIN 9.5 g/dL (12.0-18.0); BG VENT MODE MASK - AEROSOL
[2019-08-22] MEDS: METOPROLOL TARTRATE 25MG TABLET PO SCH (21:45)
[2019-08-23] VITALS (64 sets, daily range): BP systolic 98–160; BP diastolic 54–116
[2019-08-23] MEDS: IPRATROPIUM/ALBUTEROL 0.5-3(2.5)MG/3ML NEB HHN PRN ×2 (00:07→08:57)
[2019-08-23] MEDS ORDERED: LACTULOSE 20G/30ML UDC PO SCH (01:00)
[2019-08-23] MEDS: CEFAZOLIN 1000MG PREMIX 50 ML IV SCH ×2 (01:24→09:19)
[2019-08-23] MEDS: INSULIN LISPRO 100 UNITS/ML SUBCUT SCH ×4 (01:25→17:29)
[2019-08-23] MEDS: MORPHINE SULFATE 2 MG/ML CPJ (NOT FOR IM USE) IV PRN (03:16)
[2019-08-23] MEDS: DEXT 5%/0.45% NACL 1000ML 1,000 ML IV SCH ×3 (04:23→20:56)
[2019-08-23] MEDS: BLOOD SUGAR DIAGNOSTIC STRIP TEST SCH ×4 (06:00→17:30)
[2019-08-23 06:08] LABS: HEMATOCRIT 26.6 % (42.0-52.0); HEMOGLOBIN 8.7 g/dL (14.0-18.0); MEAN CORPUSCULAR HEMOGLOBIN 28.4 pg (28.0-32.0); MEAN CORPUSCULAR VOLUME 87.3 fL (80.0-94.0); PLATELET 130 x1000/uL (130-400); RED BLOOD CELL COUNT 3.05 mill/uL (4.7-6.1); RED CELL DISTRIBUTION WIDTH 14.2 % (11.6-14.6)
[2019-08-23 06:10] LABS: CHLORIDE 116 mEq/L (98-107)
[2019-08-23 07:32] LABS: BG BASE EXCESS 1.3 mmol/L (-2.0-2.0); BG CARBOXYHEMOGLOBIN 0.3 % (0.5-1.5); BG DEOXYHEMOGLOBIN 6.1 % (0.0-5.0); BG HCO3 ACT 24.7 mmol/L (22.0-26.0); BG METHEMOGLOBIN 0.1 % (0.0-1.5); BG OXYGEN SATURATION 93.9 % (92.0-98.5); BG OXYHEMOGLOBIN 93.5 % (94.0-97.0); BG PCO2 34.3 mmHg (35.0-45.0); BG PH 7.475 (7.350-7.450); BG PO2 72.5 mmHg (75.0-100.0); BG TOTAL HEMOGLOBIN 9.5 g/dL (12.0-18.0)
[2019-08-23 07:46] LABS: BG SAMPLE SITE LEFT RADIAL; BG VENT MODE COOL AEROSOL
[2019-08-23 07:47] LABS: BG FLOW(L/min) 10 LPM L/min; BG FRACTION INSPIRED OXYGEN 50
[2019-08-23] MEDS: LACTULOSE 20G/30ML UDC PO SCH ×2 (08:15→16:31)
[2019-08-23] MEDS: LEVETIRACETAM 500MG in SODIUM CHLORIDE 0.9% 100ML IV SCH (08:16)
[2019-08-23] MEDS: LOSARTAN POTASSIUM 25 MG TABLET PO SCH (08:16)
[2019-08-23] MEDS: PANTOPRAZOLE SODIUM 40 MG/VIAL IV SCH (08:16)
[2019-08-23] MEDS: METOPROLOL TARTRATE 25MG TABLET PO SCH ×2 (08:17→21:32)
[2019-08-23] MEDS: AMLODIPINE 5MG TABLET PO SCH ×2 (08:18→21:32)
[2019-08-23 10:38] LABS: BG BASE EXCESS -0.2 mmol/L (-2.0-2.0); BG CARBOXYHEMOGLOBIN 0.3 % (0.5-1.5); BG DEOXYHEMOGLOBIN 8.9 % (0.0-5.0); BG FRACTION INSPIRED OXYGEN 50; BG HCO3 ACT 22.3 mmol/L (22.0-26.0); BG METHEMOGLOBIN 0.3 % (0.0-1.5); BG OXYHEMOGLOBIN 90.5 % (94.0-97.0); BG PCO2 29.3 mmHg (35.0-45.0); BG PH 7.499 (7.350-7.450); BG PO2 59.5 mmHg (75.0-100.0); BG SAMPLE SITE LEFT RADIAL; BG TOTAL HEMOGLOBIN 10.5 g/dL (12.0-18.0); BG VENT MODE MASK - AEROSOL
[2019-08-23] MEDS: ACETAMINOPHEN 650MG/20.3ML UDC PO PRN ×2 (12:34→21:33)
[2019-08-23 12:51] LABS: BG BASE EXCESS -1.5 mmol/L (-2.0-2.0); BG CARBOXYHEMOGLOBIN 0.3 % (0.5-1.5); BG DEOXYHEMOGLOBIN 7.1 % (0.0-5.0); BG FRACTION INSPIRED OXYGEN 98; BG HCO3 ACT 20.3 mmol/L (22.0-26.0); BG METHEMOGLOBIN 0.2 % (0.0-1.5); BG OXYGEN SATURATION 92.9 % (92.0-98.5); BG OXYHEMOGLOBIN 92.4 % (94.0-97.0); BG PCO2 25.9 mmHg (35.0-45.0); BG PH 7.512 (7.350-7.450); BG PO2 63.9 mmHg (75.0-100.0); BG SAMPLE SITE RIGHT RADIAL; BG TOTAL HEMOGLOBIN 11.8 g/dL (12.0-18.0); BG VENT MODE MASK - AEROSOL
[2019-08-23] MEDS ORDERED: PIPERACILLIN/TAZOBACTAM 3.375 G in DEXT 5% WATER 100 ML IV SCH (13:00)
[2019-08-23] MEDS ORDERED: POTASSIUM CHLORIDE INJ 40 MEQ in DEXT 5% WATER 250 ML IV SCH (13:00)
[2019-08-23] MEDS: VANCOMYCIN 1 G PREMIX 200 ML IV SCH ×2 (15:14→21:34)
[2019-08-23] MEDS ORDERED: FUROSEMIDE 20MG/2ML VIAL IVP NR (15:45)
[2019-08-23] MEDS ORDERED: CLONIDINE 0.1MG TABLET PO PRN (15:45)
[2019-08-23 18:14] LABS: BG BASE EXCESS 0.5 mmol/L (-2.0-2.0); BG BILEVEL POS AIRWAY PRESSURE 15/5; BG CARBOXYHEMOGLOBIN 0.3 % (0.5-1.5); BG HCO3 ACT 22.7 mmol/L (22.0-26.0); BG METHEMOGLOBIN 0.1 % (0.0-1.5); BG OXYHEMOGLOBIN 90.6 % (94.0-97.0); BG PCO2 28.2 mmHg (35.0-45.0); BG PH 7.523 (7.350-7.450); BG PO2 58.1 mmHg (75.0-100.0); BG SAMPLE SITE RIGHT RADIAL; BG TOTAL HEMOGLOBIN 9.9 g/dL (12.0-18.0); BG VENT MODE MASK - BIPAP; BG VENT RATE 16 set
[2019-08-23] MEDS: LEVETIRACETAM 500MG PREMIX 100 ML IV SCH (21:34)
[2019-08-24] VITALS (56 sets, daily range): BP systolic 98–153; BP diastolic 57–95
[2019-08-24] MEDS: CEFEPIME 2,000 MG in DEXT 5% WATER 100 ML IV SCH ×4 (00:03→21:42)
[2019-08-24] MEDS: INSULIN LISPRO 100 UNITS/ML SUBCUT SCH ×4 (00:05→17:38)
[2019-08-24] MEDS: BLOOD SUGAR DIAGNOSTIC STRIP TEST SCH ×4 (00:18→17:26)
[2019-08-24] MEDS: IPRATROPIUM/ALBUTEROL 0.5-3(2.5)MG/3ML NEB HHN SCH ×4 (01:44→20:10)
[2019-08-24] MEDS ORDERED: NOREPINEPHRINE 16 MG in DEXT 5% WATER 234 ML IV PRN (03:00)
[2019-08-24 03:40] LABS: BG BASE EXCESS 1.8 mmol/L (-2.0-2.0); BG CARBOXYHEMOGLOBIN 0.3 % (0.5-1.5); BG DEOXYHEMOGLOBIN 1.5 % (0.0-5.0); BG FRACTION INSPIRED OXYGEN 100; BG HCO3 ACT 24.3 mmol/L (22.0-26.0); BG METHEMOGLOBIN 0.3 % (0.0-1.5); BG OXYGEN SATURATION 98.5 % (92.0-98.5); BG OXYHEMOGLOBIN 97.9 % (94.0-97.0); BG PCO2 31.2 mmHg (35.0-45.0); BG PO2 148.8 mmHg (75.0-100.0); BG SAMPLE SITE LEFT RADIAL; BG TOTAL HEMOGLOBIN 10.7 g/dL (12.0-18.0); BG VENT MODE MASK - NRB
[2019-08-24 05:17] LABS: HEMATOCRIT. 26.9 % (42.0-52.0); HEMOGLOBIN. 9.2 g/dL (14.0-18.0); MEAN CORPUSCULAR HEMOGLOBIN 29.6 pg (28.0-32.0); MEAN CORPUSCULAR VOLUME 86.4 fL (80.0-94.0); MEAN PLATELET VOLUME 10.5 fl (7.4-10.4); PLATELET 123 x1000/uL (130-400); RED BLOOD CELL COUNT 3.11 mill/uL (4.7-6.1)
[2019-08-24 05:21] LABS: CHLORIDE 110 mEq/L (98-107)
[2019-08-24] MEDS: VANCOMYCIN 1 G PREMIX 200 ML IV SCH ×3 (06:37→21:42)
[2019-08-24 08:27] LABS: PLATELET ESTIMATE SLIGHTLY DECREASED
[2019-08-24] MEDS: LOSARTAN POTASSIUM 25 MG TABLET PO SCH (08:47)
[2019-08-24] MEDS: ACETAMINOPHEN 650MG/20.3ML UDC PO PRN ×2 (08:48→21:41)
[2019-08-24] MEDS: LACTULOSE 20G/30ML UDC PO SCH ×2 (08:48→17:36)
[2019-08-24] MEDS: AMLODIPINE 5MG TABLET PO SCH ×2 (08:48→21:00)
[2019-08-24] MEDS: METOPROLOL TARTRATE 25MG TABLET PO SCH ×2 (08:49→21:00)
[2019-08-24] MEDS: LEVETIRACETAM 500MG PREMIX 100 ML IV SCH ×2 (08:50→21:41)
[2019-08-24] MEDS: PANTOPRAZOLE SODIUM 40 MG/VIAL IV SCH (08:52)
[2019-08-24 09:28] LABS: BG BASE EXCESS -1.2 mmol/L (-2.0-2.0); BG CARBOXYHEMOGLOBIN 0.2 % (0.5-1.5); BG FRACTION INSPIRED OXYGEN 100; BG HCO3 ACT 21.4 mmol/L (22.0-26.0); BG METHEMOGLOBIN 0.2 % (0.0-1.5); BG OXYHEMOGLOBIN 98.6 % (94.0-97.0); BG PCO2 28.4 mmHg (35.0-45.0); BG PH 7.494 (7.350-7.450); BG PO2 263.4 mmHg (75.0-100.0); BG SAMPLE SITE RIGHT RADIAL; BG TOTAL HEMOGLOBIN 10.2 g/dL (12.0-18.0); BG VENT MODE MASK - NRB
[2019-08-24] MEDS: DEXT 5%/0.45% NACL 1000ML 1,000 ML IV SCH (12:37)
[2019-08-24 14:07] LABS: VANCOMYCIN TROUGH 1.6 ug/mL (5.0-10.0)
[2019-08-24] MEDS ORDERED: ONDANSETRON HCL 4MG/2ML INJ ONE (14:08)
[2019-08-24] MEDS: ONDANSETRON HCL 4MG/2ML INJ IV PRN (14:12)
[2019-08-24] MEDS ORDERED: POTASSIUM CHLORIDE INJ 40 MEQ in DEXT 5% WATER 250 ML IV NR (15:00)
[2019-08-24 17:04] LABS: BG CARBOXYHEMOGLOBIN 0.2 % (0.5-1.5); BG DEOXYHEMOGLOBIN 1.9 % (0.0-5.0); BG FRACTION INSPIRED OXYGEN 100; BG HCO3 ACT 22.5 mmol/L (22.0-26.0); BG METHEMOGLOBIN 0.2 % (0.0-1.5); BG OXYGEN SATURATION 98.1 % (92.0-98.5); BG OXYHEMOGLOBIN 97.7 % (94.0-97.0); BG PCO2 28.8 mmHg (35.0-45.0); BG PO2 118.8 mmHg (75.0-100.0); BG SAMPLE SITE LEFT RADIAL; BG TOTAL HEMOGLOBIN 9.8 g/dL (12.0-18.0); BG VENT MODE MASK - NRB
[2019-08-24] MEDS: MORPHINE SULFATE 2 MG/ML CPJ (NOT FOR IM USE) IV PRN (22:14)
[2019-08-25] VITALS (49 sets, daily range): BP systolic 99–137; BP diastolic 60–87
[2019-08-25] MEDS: BLOOD SUGAR DIAGNOSTIC STRIP TEST SCH ×5 (00:13→23:42)
[2019-08-25] MEDS: INSULIN LISPRO 100 UNITS/ML SUBCUT SCH ×5 (00:18→23:42)
[2019-08-25] MEDS: IPRATROPIUM/ALBUTEROL 0.5-3(2.5)MG/3ML NEB HHN SCH ×4 (01:56→20:21)
[2019-08-25] MEDS: MORPHINE SULFATE 2 MG/ML CPJ (NOT FOR IM USE) IV PRN ×4 (02:20→23:42)
[2019-08-25] MEDS: DEXT 5%/0.45% NACL 1000ML 1,000 ML IV SCH ×2 (02:20→15:38)
[2019-08-25 05:44] LABS: HEMATOCRIT. 27.2 % (42.0-52.0); MEAN CORPUSCULAR HEMOGLOBIN 28.7 pg (28.0-32.0); MEAN CORPUSCULAR VOLUME 86.8 fL (80.0-94.0); MEAN PLATELET VOLUME 10.7 fl (7.4-10.4); PLATELET 148 x1000/uL (130-400); RED BLOOD CELL COUNT 3.14 mill/uL (4.7-6.1)
[2019-08-25 05:56] LABS: CHLORIDE 109 mEq/L (98-107)
[2019-08-25] MEDS: CEFEPIME 2,000 MG in DEXT 5% WATER 100 ML IV SCH (06:51)
[2019-08-25] MEDS: VANCOMYCIN 1 G PREMIX 200 ML IV SCH ×3 (06:51→21:12)
[2019-08-25 07:45] LABS: BG BASE EXCESS -0.5 mmol/L (-2.0-2.0); BG CARBOXYHEMOGLOBIN 0.3 % (0.5-1.5); BG FRACTION INSPIRED OXYGEN 100; BG HCO3 ACT 22.9 mmol/L (22.0-26.0); BG OXYHEMOGLOBIN 97.7 % (94.0-97.0); BG PCO2 32.8 mmHg (35.0-45.0); BG PH 7.462 (7.350-7.450); BG PO2 121.4 mmHg (75.0-100.0); BG SAMPLE SITE RIGHT RADIAL; BG TOTAL HEMOGLOBIN 9.2 g/dL (12.0-18.0); BG VENT MODE MASK - NRB
[2019-08-25 07:46] LABS: PLATELET ESTIMATE NORMAL
[2019-08-25] MEDS: METOPROLOL TARTRATE 25MG TABLET PO SCH ×2 (08:43→21:12)
[2019-08-25] MEDS: LOSARTAN POTASSIUM 25 MG TABLET PO SCH (08:43)
[2019-08-25] MEDS: PANTOPRAZOLE SODIUM 40 MG/VIAL IV SCH (08:43)
[2019-08-25] MEDS: LEVETIRACETAM 500MG PREMIX 100 ML IV SCH ×2 (08:44→21:17)
[2019-08-25] MEDS: AMLODIPINE 5MG TABLET PO SCH ×2 (08:45→21:12)
[2019-08-25] MEDS ORDERED: POTASSIUM CHLORIDE INJ 40 MEQ in DEXT 5% WATER 250 ML IV NR (12:00)
[2019-08-25] MEDS: MEROPENEM 1,000 MG in SODIUM CHLORIDE 0.9% 100 ML IV SCH ×2 (17:51→21:12)
[2019-08-25] MEDS: ACETAMINOPHEN 650MG/20.3ML UDC PO PRN (21:13)
[2019-08-26] VITALS (48 sets, daily range): BP systolic 92–145; BP diastolic 47–81
[2019-08-26] MEDS: IPRATROPIUM/ALBUTEROL 0.5-3(2.5)MG/3ML NEB HHN SCH ×4 (02:14→21:49)
[2019-08-26] MEDS: MEROPENEM 1,000 MG in SODIUM CHLORIDE 0.9% 100 ML IV SCH (05:03)
[2019-08-26] MEDS: VANCOMYCIN 1 G PREMIX 200 ML IV SCH (05:03)
[2019-08-26] MEDS: DEXT 5%/0.45% NACL 1000ML 1,000 ML IV SCH ×2 (05:10→18:30)
[2019-08-26] MEDS: INSULIN LISPRO 100 UNITS/ML SUBCUT SCH ×3 (06:00→18:00)
[2019-08-26] MEDS: BLOOD SUGAR DIAGNOSTIC STRIP TEST SCH ×3 (06:00→18:26)
[2019-08-26 06:07] LABS: CHLORIDE 107 mEq/L (98-107)
[2019-08-26 06:12] LABS: HEMATOCRIT. 25.9 % (42.0-52.0); HEMOGLOBIN. 8.5 g/dL (14.0-18.0); MEAN CORPUSCULAR HEMOGLOBIN 28.4 pg (28.0-32.0); MEAN CORPUSCULAR VOLUME 86.9 fL (80.0-94.0); MEAN PLATELET VOLUME 10.5 fl (7.4-10.4); PLATELET 173 x1000/uL (130-400); RED BLOOD CELL COUNT 2.98 mill/uL (4.7-6.1); RED CELL DISTRIBUTION WIDTH 14.3 % (11.6-14.6)
[2019-08-26 07:24] LABS: PLATELET ESTIMATE NORMAL
[2019-08-26 08:28] LABS: BG BASE EXCESS 1.4 mmol/L (-2.0-2.0); BG CARBOXYHEMOGLOBIN 0.3 % (0.5-1.5); BG DEOXYHEMOGLOBIN 1.6 % (0.0-5.0); BG FRACTION INSPIRED OXYGEN 50; BG HCO3 ACT 24.2 mmol/L (22.0-26.0); BG METHEMOGLOBIN 0.5 % (0.0-1.5); BG OXYGEN SATURATION 98.4 % (92.0-98.5); BG OXYHEMOGLOBIN 97.6 % (94.0-97.0); BG PCO2 31.3 mmHg (35.0-45.0); BG PH 7.506 (7.350-7.450); BG PO2 130.2 mmHg (75.0-100.0); BG SAMPLE SITE LEFT RADIAL; BG TOTAL HEMOGLOBIN 8.8 g/dL (12.0-18.0); BG VENT MODE MASK - VENTI
[2019-08-26] MEDS: METOPROLOL TARTRATE 25MG TABLET PO SCH ×2 (09:00→20:51)
[2019-08-26] MEDS: LOSARTAN POTASSIUM 25 MG TABLET PO SCH (09:06)
[2019-08-26] MEDS: AMLODIPINE 5MG TABLET PO SCH ×2 (09:06→20:51)
[2019-08-26] MEDS: LEVETIRACETAM 500MG PREMIX 100 ML IV SCH ×2 (09:07→20:52)
[2019-08-26] MEDS: MORPHINE SULFATE 2 MG/ML CPJ (NOT FOR IM USE) IV PRN ×3 (09:52→16:07)
[2019-08-26] MEDS: ACETYLCYSTEINE 100MG/ML 10% VIAL 4ML INH SCH (15:19)
[2019-08-26] MEDS ORDERED: CEFTRIAXONE 1 G PREMIX 50 ML IV SCH (16:00)
[2019-08-26] MEDS: CEFTRIAXONE 1 G PREMIX 50 ML IV SCH (16:08)
[2019-08-26] MEDS: ACETAMINOPHEN 650MG/20.3ML UDC PO PRN (20:52)
[2019-08-27] VITALS (50 sets, daily range): BP systolic 106–144; BP diastolic 52–82
[2019-08-27] MEDS: BLOOD SUGAR DIAGNOSTIC STRIP TEST SCH ×4 (00:22→18:00)
[2019-08-27] MEDS: INSULIN LISPRO 100 UNITS/ML SUBCUT SCH ×4 (00:50→18:00)
[2019-08-27] MEDS: ACETYLCYSTEINE 100MG/ML 10% VIAL 4ML INH SCH ×2 (03:08→08:15)
[2019-08-27] MEDS: IPRATROPIUM/ALBUTEROL 0.5-3(2.5)MG/3ML NEB HHN SCH ×4 (03:08→20:51)
[2019-08-27 05:48] LABS: HEMATOCRIT. 26.4 % (42.0-52.0); HEMOGLOBIN. 8.8 g/dL (14.0-18.0); MEAN CORPUSCULAR HEMOGLOBIN 28.6 pg (28.0-32.0); MEAN CORPUSCULAR VOLUME 85.5 fL (80.0-94.0); MEAN PLATELET VOLUME 10.2 fl (7.4-10.4); PLATELET 201 x1000/uL (130-400); RED BLOOD CELL COUNT 3.09 mill/uL (4.7-6.1); RED CELL DISTRIBUTION WIDTH 14.1 % (11.6-14.6)
[2019-08-27 05:49] LABS: CHLORIDE 106 mEq/L (98-107)
[2019-08-27 08:46] LABS: PLATELET ESTIMATE NORMAL
[2019-08-27] MEDS: LEVETIRACETAM 500MG PREMIX 100 ML IV SCH ×2 (09:21→20:28)
[2019-08-27] MEDS: LOSARTAN POTASSIUM 25 MG TABLET PO SCH (09:24)
[2019-08-27] MEDS: METOPROLOL TARTRATE 25MG TABLET PO SCH ×2 (09:24→20:29)
[2019-08-27] MEDS: AMLODIPINE 5MG TABLET PO SCH ×2 (09:24→20:29)
[2019-08-27] MEDS: ACETAMINOPHEN 650MG/20.3ML UDC PO PRN ×2 (09:37→20:28)
[2019-08-27] MEDS: MORPHINE SULFATE 2 MG/ML CPJ (NOT FOR IM USE) IV PRN ×3 (09:38→16:07)
[2019-08-27] MEDS: ONDANSETRON HCL 4MG/2ML INJ IV PRN (13:54)
[2019-08-27] MEDS: DEXT 5%/0.45% NACL 1000ML 1,000 ML IV SCH ×2 (14:56→20:29)
[2019-08-27] MEDS ORDERED: KCL 20MEQ/100ML PREMIX 100 ML IV SCH (15:00)
[2019-08-27] MEDS: CEFTRIAXONE 1 G PREMIX 50 ML IV SCH (15:58)
[2019-08-27] MEDS: METHYLPREDNISOLONE SOD SUCC 40 MG/ML VIAL IV SCH (20:28)
[2019-08-27] MEDS: BUDESONIDE 0.5MG/2ML NEB HHN SCH (20:51)
[2019-08-28] VITALS (49 sets, daily range): BP systolic 101–136; BP diastolic 64–91
[2019-08-28] MEDS: BLOOD SUGAR DIAGNOSTIC STRIP TEST SCH ×4 (00:28→18:00)
[2019-08-28] MEDS: IPRATROPIUM/ALBUTEROL 0.5-3(2.5)MG/3ML NEB HHN SCH ×6 (00:39→20:36)
[2019-08-28] MEDS: ONDANSETRON HCL 4MG/2ML INJ IV PRN (01:56)
[2019-08-28] MEDS: METHYLPREDNISOLONE SOD SUCC 40 MG/ML VIAL IV SCH ×3 (01:59→18:11)
[2019-08-28 05:54] LABS: HEMATOCRIT. 28.1 % (42.0-52.0); HEMOGLOBIN. 9.4 g/dL (14.0-18.0); MEAN CORPUSCULAR HEMOGLOBIN 28.8 pg (28.0-32.0); MEAN CORPUSCULAR VOLUME 86.4 fL (80.0-94.0); MEAN PLATELET VOLUME 9.8 fl (7.4-10.4); PLATELET 245 x1000/uL (130-400); RED BLOOD CELL COUNT 3.25 mill/uL (4.7-6.1); RED CELL DISTRIBUTION WIDTH 14.5 % (11.6-14.6)
[2019-08-28] MEDS: MORPHINE SULFATE 2 MG/ML CPJ (NOT FOR IM USE) IV PRN ×3 (06:15→15:29)
[2019-08-28 06:19] LABS: CHLORIDE 105 mEq/L (98-107)
[2019-08-28] MEDS: INSULIN LISPRO 100 UNITS/ML SUBCUT SCH ×5 (06:52→23:43)
[2019-08-28] MEDS: BUDESONIDE 0.5MG/2ML NEB HHN SCH ×2 (08:14→20:36)
[2019-08-28 09:00] LABS: PLATELET ESTIMATE NORMAL
[2019-08-28] MEDS: LEVETIRACETAM 500MG PREMIX 100 ML IV SCH ×2 (09:44→21:08)
[2019-08-28] MEDS: METOPROLOL TARTRATE 25MG TABLET PO SCH ×2 (09:44→21:08)
[2019-08-28] MEDS: LOSARTAN POTASSIUM 25 MG TABLET PO SCH (09:44)
[2019-08-28] MEDS: AMLODIPINE 5MG TABLET PO SCH ×2 (09:44→21:08)
[2019-08-28] MEDS: HYDROCODONE/ACETAMINOPHEN 5/325MG TABLET PO PRN ×3 (12:24→21:08)
[2019-08-28 14:25] LABS: BG BASE EXCESS 1.5 mmol/L (-2.0-2.0); BG CARBOXYHEMOGLOBIN 0.3 % (0.5-1.5); BG DEOXYHEMOGLOBIN 3.1 % (0.0-5.0); BG METHEMOGLOBIN 0.3 % (0.0-1.5); BG OXYGEN SATURATION 96.9 % (92.0-98.5); BG OXYHEMOGLOBIN 96.3 % (94.0-97.0); BG PCO2 34.7 mmHg (35.0-45.0); BG PH 7.476 (7.350-7.450); BG PO2 91.8 mmHg (75.0-100.0); BG SAMPLE SITE RIGHT RADIAL; BG TOTAL HEMOGLOBIN 8.7 g/dL (12.0-18.0); BG VENT MODE MASK - VENTI
[2019-08-28] MEDS: CEFTRIAXONE 1 G PREMIX 50 ML IV SCH (18:11)
[2019-08-29] VITALS (48 sets, daily range): BP systolic 99–140; BP diastolic 57–87
[2019-08-29] MEDS: IPRATROPIUM/ALBUTEROL 0.5-3(2.5)MG/3ML NEB HHN SCH ×6 (00:15→21:02)
[2019-08-29] MEDS: BLOOD SUGAR DIAGNOSTIC STRIP TEST SCH ×5 (00:39→23:58)
[2019-08-29] MEDS: MORPHINE SULFATE 2 MG/ML CPJ (NOT FOR IM USE) IV PRN ×3 (01:35→11:58)
[2019-08-29] MEDS: METHYLPREDNISOLONE SOD SUCC 40 MG/ML VIAL IV SCH ×3 (01:36→17:11)
[2019-08-29] MEDS: HYDROCODONE/ACETAMINOPHEN 5/325MG TABLET PO PRN ×2 (05:19→17:12)
[2019-08-29 05:46] LABS: HEMATOCRIT. 25.8 % (42.0-52.0); HEMOGLOBIN. 8.8 g/dL (14.0-18.0); MEAN CORPUSCULAR HEMOGLOBIN 29.2 pg (28.0-32.0); MEAN CORPUSCULAR VOLUME 85.6 fL (80.0-94.0); MEAN PLATELET VOLUME 9.3 fl (7.4-10.4); PLATELET 298 x1000/uL (130-400); RED BLOOD CELL COUNT 3.01 mill/uL (4.7-6.1); RED CELL DISTRIBUTION WIDTH 14.2 % (11.6-14.6)
[2019-08-29 05:51] LABS: CHLORIDE 104 mEq/L (98-107)
[2019-08-29] MEDS: INSULIN LISPRO 100 UNITS/ML SUBCUT SCH ×3 (06:55→17:18)
[2019-08-29] MEDS: BUDESONIDE 0.5MG/2ML NEB HHN SCH ×2 (07:55→21:03)
[2019-08-29] MEDS: LOSARTAN POTASSIUM 25 MG TABLET PO SCH (08:06)
[2019-08-29] MEDS: AMLODIPINE 5MG TABLET PO SCH ×2 (08:06→21:02)
[2019-08-29] MEDS: METOPROLOL TARTRATE 25MG TABLET PO SCH ×2 (08:07→21:02)
[2019-08-29 08:09] LABS: PLATELET ESTIMATE NORMAL
[2019-08-29] MEDS: DEXT 5%/0.45% NACL 1000ML 1,000 ML IV SCH ×2 (09:04→23:58)
[2019-08-29] MEDS: LEVETIRACETAM 500MG PREMIX 100 ML IV SCH ×2 (10:00→21:02)
[2019-08-29] MEDS: ONDANSETRON HCL 4MG/2ML INJ IV PRN (11:57)
[2019-08-29] MEDS: PANTOPRAZOLE SODIUM 40 MG/VIAL IV SCH (13:59)
[2019-08-29] MEDS ORDERED: GLYCOPYRROLATE 0.2MG/ML VIAL 5ML IV PRN (15:45)
[2019-08-29] MEDS ORDERED: GLYCOPYRROLATE 0.2 MG/ML 2ML VIAL IV PRN (16:30)
[2019-08-29] MEDS: CEFTRIAXONE 1 G PREMIX 50 ML IV SCH (16:33)
[2019-08-30] VITALS (50 sets, daily range): BP systolic 112–140; BP diastolic 66–90
[2019-08-30] MEDS: DEXT 5%/0.45% NACL 1000ML 1,000 ML IV SCH (00:03)
[2019-08-30] MEDS: INSULIN LISPRO 100 UNITS/ML SUBCUT SCH ×4 (00:11→23:52)
[2019-08-30] MEDS: IPRATROPIUM/ALBUTEROL 0.5-3(2.5)MG/3ML NEB HHN SCH ×6 (00:45→21:32)
[2019-08-30] MEDS: METHYLPREDNISOLONE SOD SUCC 40 MG/ML VIAL IV SCH ×3 (01:38→17:35)
[2019-08-30] MEDS: METOPROLOL TARTRATE 25MG TABLET PO SCH ×2 (08:13→20:51)
[2019-08-30] MEDS: PANTOPRAZOLE SODIUM 40 MG/VIAL IV SCH (08:13)
[2019-08-30] MEDS: LEVETIRACETAM 500MG PREMIX 100 ML IV SCH ×2 (08:13→20:50)
[2019-08-30] MEDS: AMLODIPINE 5MG TABLET PO SCH ×2 (08:14→20:51)
[2019-08-30] MEDS: LOSARTAN POTASSIUM 25 MG TABLET PO SCH (08:14)
[2019-08-30] MEDS: BUDESONIDE 0.5MG/2ML NEB HHN SCH ×2 (08:21→21:32)
[2019-08-30 08:49] LABS: HEMATOCRIT. 26.8 % (42.0-52.0); HEMOGLOBIN. 8.8 g/dL (14.0-18.0); MEAN CORPUSCULAR HEMOGLOBIN 28.3 pg (28.0-32.0); MEAN CORPUSCULAR VOLUME 86.5 fL (80.0-94.0); MEAN PLATELET VOLUME 9.1 fl (7.4-10.4); PLATELET 330 x1000/uL (130-400); RED CELL DISTRIBUTION WIDTH 14.4 % (11.6-14.6)
[2019-08-30 08:54] LABS: CHLORIDE 106 mEq/L (98-107)
[2019-08-30] MEDS: BLOOD SUGAR DIAGNOSTIC STRIP TEST SCH ×3 (11:09→23:38)
[2019-08-30] MEDS: LACTULOSE 20G/30ML UDC PO PRN (11:29)
[2019-08-30] MEDS: MORPHINE SULFATE 2 MG/ML CPJ (NOT FOR IM USE) IV PRN ×2 (15:15→18:25)
[2019-08-30 16:13] LABS: PLATELET ESTIMATE NORMAL
[2019-08-30] MEDS: CEFTRIAXONE 1 G PREMIX 50 ML IV SCH (17:36)
[2019-08-31] VITALS (13 sets, daily range): BP systolic 115–134; BP diastolic 65–81
[2019-08-31] MEDS: IPRATROPIUM/ALBUTEROL 0.5-3(2.5)MG/3ML NEB HHN SCH ×6 (00:52→20:09)
[2019-08-31] MEDS: METHYLPREDNISOLONE SOD SUCC 40 MG/ML VIAL IV SCH ×3 (02:39→21:48)
[2019-08-31] MEDS: LACTULOSE 20G/30ML UDC PO PRN ×2 (02:39→09:42)
[2019-08-31 05:09] LABS: HEMATOCRIT. 26.9 % (42.0-52.0); HEMOGLOBIN. 8.8 g/dL (14.0-18.0); MEAN CORPUSCULAR HEMOGLOBIN 28.7 pg (28.0-32.0); MEAN CORPUSCULAR VOLUME 87.5 fL (80.0-94.0); RED BLOOD CELL COUNT 3.07 mill/uL (4.7-6.1); RED CELL DISTRIBUTION WIDTH 14.4 % (11.6-14.6)
[2019-08-31 05:28] LABS: CHLORIDE 108 mEq/L (98-107)
[2019-08-31] MEDS: INSULIN LISPRO 100 UNITS/ML SUBCUT SCH ×3 (06:00→18:00)
[2019-08-31] MEDS: BLOOD SUGAR DIAGNOSTIC STRIP TEST SCH ×3 (06:26→18:00)
[2019-08-31 09:22] LABS: PLATELET ESTIMATE NORMAL
[2019-08-31 09:23] LABS: MEAN PLATELET VOLUME 9.8 fl (7.4-10.4); PLATELET 345 x1000/uL (130-400)
[2019-08-31] MEDS: PANTOPRAZOLE SODIUM 40 MG/VIAL IV SCH (09:32)
[2019-08-31] MEDS: METOPROLOL TARTRATE 25MG TABLET PO SCH ×2 (09:33→21:00)
[2019-08-31] MEDS: LOSARTAN POTASSIUM 25 MG TABLET PO SCH (09:33)
[2019-08-31] MEDS: AMLODIPINE 5MG TABLET PO SCH ×2 (09:33→21:00)
[2019-08-31] MEDS: LEVETIRACETAM 500MG PREMIX 100 ML IV SCH ×2 (09:33→21:48)
[2019-08-31] MEDS ORDERED: BISACODYL 10MG SUPP PR NR (12:00)
[2019-08-31 12:08] LABS: BG BASE EXCESS 1.1 mmol/L (-2.0-2.0); BG CARBOXYHEMOGLOBIN 0.3 % (0.5-1.5); BG DEOXYHEMOGLOBIN 7.9 % (0.0-5.0); BG FRACTION INSPIRED OXYGEN 40; BG HCO3 ACT 24.4 mmol/L (22.0-26.0); BG METHEMOGLOBIN 0.1 % (0.0-1.5); BG OXYGEN SATURATION 92.1 % (92.0-98.5); BG OXYHEMOGLOBIN 91.7 % (94.0-97.0); BG PH 7.474 (7.350-7.450); BG PO2 63.9 mmHg (75.0-100.0); BG SAMPLE SITE RIGHT RADIAL; BG TOTAL HEMOGLOBIN 10.4 g/dL (12.0-18.0); BG VENT MODE MASK - VENTI
[2019-08-31] MEDS: DOCUSATE SODIUM 100MG CAPSULE PO SCH ×2 (12:41→18:34)
[2019-08-31] MEDS: ONDANSETRON HCL 4MG/2ML INJ IV PRN (15:52)
[2019-08-31] MEDS: HYDROCODONE/ACETAMINOPHEN 5/325MG TABLET PO PRN (16:25)
[2019-08-31] MEDS: DEXT 5%/0.45% NACL 1000ML 1,000 ML IV SCH (18:34)
[2019-09-01] VITALS (12 sets, daily range): BP systolic 100–119; BP diastolic 58–76
[2019-09-01] MEDS: IPRATROPIUM/ALBUTEROL 0.5-3(2.5)MG/3ML NEB HHN SCH ×6 (00:30→20:18)
[2019-09-01] MEDS: BLOOD SUGAR DIAGNOSTIC STRIP TEST SCH ×4 (06:02→17:33)
[2019-09-01] MEDS: INSULIN LISPRO 100 UNITS/ML SUBCUT SCH ×4 (06:09→17:52)
[2019-09-01 06:37] LABS: HEMATOCRIT. 29.8 % (42.0-52.0); HEMOGLOBIN. 9.8 g/dL (14.0-18.0); MEAN CORPUSCULAR HEMOGLOBIN 28.6 pg (28.0-32.0); MEAN CORPUSCULAR VOLUME 86.8 fL (80.0-94.0); MEAN PLATELET VOLUME 8.9 fl (7.4-10.4); PLATELET 393 x1000/uL (130-400); RED BLOOD CELL COUNT 3.43 mill/uL (4.7-6.1); RED CELL DISTRIBUTION WIDTH 14.6 % (11.6-14.6)
[2019-09-01 06:59] LABS: CHLORIDE 106 mEq/L (98-107)
[2019-09-01] MEDS: DOCUSATE SODIUM 100MG CAPSULE PO SCH (09:00)
[2019-09-01] MEDS: METOPROLOL TARTRATE 25MG TABLET PO SCH ×2 (09:58→20:33)
[2019-09-01] MEDS: PANTOPRAZOLE SODIUM 40 MG/VIAL IV SCH (09:58)
[2019-09-01] MEDS: LEVETIRACETAM 500MG PREMIX 100 ML IV SCH ×2 (09:58→20:31)
[2019-09-01] MEDS: AMLODIPINE 5MG TABLET PO SCH ×2 (09:59→20:33)
[2019-09-01] MEDS: METHYLPREDNISOLONE SOD SUCC 40 MG/ML VIAL IV SCH ×2 (09:59→20:35)
[2019-09-01] MEDS: LOSARTAN POTASSIUM 25 MG TABLET PO SCH (09:59)
[2019-09-01 10:43] LABS: PLATELET ESTIMATE NORMAL
[2019-09-01] MEDS ORDERED: BISACODYL 10MG SUPP PR SCH (16:30)
[2019-09-01] MEDS: DOCUSATE SODIUM SUGAR FREE 100MG/10ML UDC NG SCH (17:00)
[2019-09-01] MEDS: DEXT 5%/0.45% NACL 1000ML 1,000 ML IV SCH (17:14)
[2019-09-01] MEDS: METOCLOPRAMIDE HCL 10MG/2ML VIAL IV SCH (17:14)
[2019-09-01] MEDS: HYDROCODONE/ACETAMINOPHEN 5/325MG TABLET PO PRN (20:34)
[2019-09-02] VITALS (12 sets, daily range): BP systolic 106–138; BP diastolic 66–81
[2019-09-02] MEDS: IPRATROPIUM/ALBUTEROL 0.5-3(2.5)MG/3ML NEB HHN SCH ×6 (00:23→21:01)
[2019-09-02] MEDS: METOCLOPRAMIDE HCL 10MG/2ML VIAL IV SCH ×4 (00:39→17:37)
[2019-09-02] MEDS: INSULIN LISPRO 100 UNITS/ML SUBCUT SCH ×4 (00:39→18:36)
[2019-09-02] MEDS: BLOOD SUGAR DIAGNOSTIC STRIP TEST SCH ×4 (00:45→18:36)
[2019-09-02 07:44] LABS: HEMATOCRIT. 28.7 % (42.0-52.0); HEMOGLOBIN. 9.5 g/dL (14.0-18.0); MEAN CORPUSCULAR HEMOGLOBIN 28.8 pg (28.0-32.0); MEAN CORPUSCULAR VOLUME 86.9 fL (80.0-94.0); MEAN PLATELET VOLUME 8.8 fl (7.4-10.4); PLATELET 419 x1000/uL (130-400); RED CELL DISTRIBUTION WIDTH 14.5 % (11.6-14.6)
[2019-09-02 08:14] LABS: CHLORIDE 107 mEq/L (98-107)
[2019-09-02] MEDS: LOSARTAN POTASSIUM 25 MG TABLET PO SCH (09:00)
[2019-09-02] MEDS: LEVETIRACETAM 500MG PREMIX 100 ML IV SCH ×2 (09:00→21:27)
[2019-09-02] MEDS: METOPROLOL TARTRATE 25MG TABLET PO SCH ×2 (09:01→21:00)
[2019-09-02] MEDS: AMLODIPINE 5MG TABLET PO SCH ×2 (09:01→21:00)
[2019-09-02] MEDS: FAMOTIDINE 20MG/2ML VIAL IV SCH ×2 (09:01→21:27)
[2019-09-02] MEDS: METHYLPREDNISOLONE SOD SUCC 40 MG/ML VIAL IV SCH ×2 (09:02→21:27)
[2019-09-02 09:54] LABS: PLATELET ESTIMATE INCREASED
[2019-09-02] MEDS: DEXT 5%/0.45% NACL 1000ML 1,000 ML IV SCH (17:36)
[2019-09-02] MEDS: DOCUSATE SODIUM SUGAR FREE 100MG/10ML UDC NG SCH (17:37)
[2019-09-03] VITALS (14 sets, daily range): BP systolic 111–149; BP diastolic 71–85
[2019-09-03] MEDS: BLOOD SUGAR DIAGNOSTIC STRIP TEST SCH ×4 (00:28→17:26)
[2019-09-03] MEDS: METOCLOPRAMIDE HCL 10MG/2ML VIAL IV SCH ×4 (00:28→17:27)
[2019-09-03] MEDS: IPRATROPIUM/ALBUTEROL 0.5-3(2.5)MG/3ML NEB HHN SCH ×6 (02:11→20:31)
[2019-09-03] MEDS: INSULIN LISPRO 100 UNITS/ML SUBCUT SCH ×4 (06:00→17:27)
[2019-09-03 08:08] LABS: HEMATOCRIT. 28.6 % (42.0-52.0); HEMOGLOBIN. 9.4 g/dL (14.0-18.0); MEAN CORPUSCULAR HEMOGLOBIN 28.8 pg (28.0-32.0); MEAN CORPUSCULAR VOLUME 87.9 fL (80.0-94.0); MEAN PLATELET VOLUME 8.4 fl (7.4-10.4); PLATELET 447 x1000/uL (130-400); RED BLOOD CELL COUNT 3.26 mill/uL (4.7-6.1)
[2019-09-03] MEDS: METHYLPREDNISOLONE SOD SUCC 40 MG/ML VIAL IV SCH ×2 (08:21→21:54)
[2019-09-03] MEDS: LEVETIRACETAM 500MG PREMIX 100 ML IV SCH ×2 (08:22→21:56)
[2019-09-03] MEDS: DOCUSATE SODIUM SUGAR FREE 100MG/10ML UDC NG SCH ×2 (08:57→17:26)
[2019-09-03] MEDS: METOPROLOL TARTRATE 25MG TABLET PO SCH ×2 (08:58→21:55)
[2019-09-03] MEDS: AMLODIPINE 5MG TABLET PO SCH ×2 (08:58→21:55)
[2019-09-03] MEDS: LOSARTAN POTASSIUM 25 MG TABLET PO SCH (09:05)
[2019-09-03] MEDS: FAMOTIDINE 20MG/2ML VIAL IV SCH ×2 (09:05→21:54)
[2019-09-03 09:43] LABS: CHLORIDE 107 mEq/L (98-107)
[2019-09-03 10:17] LABS: PLATELET ESTIMATE INCREASED
[2019-09-03 12:15] LABS: BG DEOXYHEMOGLOBIN 4.3 % (0.0-5.0); BG FRACTION INSPIRED OXYGEN 35; BG HCO3 ACT 21.6 mmol/L (22.0-26.0); BG METHEMOGLOBIN 0.3 % (0.0-1.5); BG OXYGEN SATURATION 95.7 % (92.0-98.5); BG OXYHEMOGLOBIN 95.4 % (94.0-97.0); BG PCO2 29.1 mmHg (35.0-45.0); BG PH 7.489 (7.350-7.450); BG PO2 80.8 mmHg (75.0-100.0); BG SAMPLE SITE RIGHT BRACHIAL; BG TOTAL HEMOGLOBIN 10.5 g/dL (12.0-18.0); BG VENT MODE MASK - VENTI
[2019-09-03] MEDS ORDERED: LIDOCAINE HCL/PF 1% 2ML VIAL ONE (13:23)
[2019-09-03] MEDS: ACETAMINOPHEN 650MG/20.3ML UDC PO PRN (14:18)
[2019-09-04] VITALS (11 sets, daily range): BP systolic 108–130; BP diastolic 64–82
[2019-09-04] MEDS: IPRATROPIUM/ALBUTEROL 0.5-3(2.5)MG/3ML NEB HHN SCH ×6 (00:18→20:19)
[2019-09-04] MEDS: METOCLOPRAMIDE HCL 10MG/2ML VIAL IV SCH ×4 (01:53→17:13)
[2019-09-04] MEDS: INSULIN LISPRO 100 UNITS/ML SUBCUT SCH ×4 (06:00→17:15)
[2019-09-04] MEDS: BLOOD SUGAR DIAGNOSTIC STRIP TEST SCH ×4 (06:42→17:05)
[2019-09-04 07:44] LABS: HEMATOCRIT. 30.1 % (42.0-52.0); HEMOGLOBIN. 9.8 g/dL (14.0-18.0); MEAN CORPUSCULAR HEMOGLOBIN 28.5 pg (28.0-32.0); MEAN CORPUSCULAR VOLUME 87.1 fL (80.0-94.0); MEAN PLATELET VOLUME 8.4 fl (7.4-10.4); PLATELET 461 x1000/uL (130-400); RED BLOOD CELL COUNT 3.45 mill/uL (4.7-6.1); RED CELL DISTRIBUTION WIDTH 15.4 % (11.6-14.6)
[2019-09-04 07:47] LABS: CHLORIDE 105 mEq/L (98-107)
[2019-09-04] MEDS: DOCUSATE SODIUM SUGAR FREE 100MG/10ML UDC NG SCH ×2 (08:51→17:13)
[2019-09-04] MEDS: METHYLPREDNISOLONE SOD SUCC 40 MG/ML VIAL IV SCH ×2 (08:51→20:58)
[2019-09-04] MEDS: FAMOTIDINE 20MG/2ML VIAL IV SCH ×2 (08:52→20:58)
[2019-09-04] MEDS: AMLODIPINE 5MG TABLET PO SCH ×2 (09:01→20:59)
[2019-09-04] MEDS: LEVETIRACETAM 500MG PREMIX 100 ML IV SCH ×2 (09:01→20:59)
[2019-09-04] MEDS: LOSARTAN POTASSIUM 25 MG TABLET PO SCH (09:01)
[2019-09-04] MEDS: METOPROLOL TARTRATE 25MG TABLET PO SCH ×2 (09:01→20:59)
[2019-09-04] MEDS: ACETAMINOPHEN 650MG SUPP PR PRN (09:08)
[2019-09-04 11:54] LABS: PLATELET ESTIMATE INCREASED
[2019-09-04] MEDS: MORPHINE SULFATE 2 MG/ML CPJ (NOT FOR IM USE) IV PRN (17:17)
[2019-09-04] MEDS ORDERED: FENTANYL CITRATE/PF 50MCG/ML 2ML VIAL ONE (17:38)
[2019-09-04] MEDS ORDERED: MIDAZOLAM HCL 5 MG/5 ML VIAL ONE (17:39)
[2019-09-04] MEDS ORDERED: MIDAZOLAM HCL 5 MG/5 ML VIAL IV PRN (18:05)
[2019-09-04] MEDS ORDERED: CEFAZOLIN SODIUM 1000MG/VIAL IM NR (18:15)
[2019-09-04] MEDS ORDERED: CEFAZOLIN 1000MG PREMIX 50 ML IV ONE (18:15)
[2019-09-04] MEDS: DEXT 5%/0.45% NACL 1000ML 1,000 ML IV SCH (21:02)
[2019-09-05] VITALS (13 sets, daily range): BP systolic 99–124; BP diastolic 57–84
[2019-09-05] MEDS: IPRATROPIUM/ALBUTEROL 0.5-3(2.5)MG/3ML NEB HHN SCH ×4 (00:15→16:17)
[2019-09-05] MEDS: BLOOD SUGAR DIAGNOSTIC STRIP TEST SCH ×4 (00:22→18:18)
[2019-09-05] MEDS: METOCLOPRAMIDE HCL 10MG/2ML VIAL IV SCH ×3 (00:23→12:16)
[2019-09-05] MEDS: MORPHINE SULFATE 2 MG/ML CPJ (NOT FOR IM USE) IV PRN (03:08)
[2019-09-05] MEDS: ONDANSETRON HCL 4MG/2ML INJ IV PRN ×2 (03:44→19:38)
[2019-09-05] MEDS: INSULIN LISPRO 100 UNITS/ML SUBCUT SCH ×4 (05:40→18:29)
[2019-09-05 07:53] LABS: CHLORIDE 105 mEq/L (98-107)
[2019-09-05 08:27] LABS: HEMATOCRIT. 27.8 % (42.0-52.0); HEMOGLOBIN. 9.2 g/dL (14.0-18.0); MEAN CORPUSCULAR HEMOGLOBIN 28.8 pg (28.0-32.0); MEAN CORPUSCULAR VOLUME 87.3 fL (80.0-94.0); MEAN PLATELET VOLUME 8.5 fl (7.4-10.4); PLATELET 428 x1000/uL (130-400); RED BLOOD CELL COUNT 3.18 mill/uL (4.7-6.1); RED CELL DISTRIBUTION WIDTH 15.9 % (11.6-14.6)
[2019-09-05] MEDS: AMLODIPINE 5MG TABLET PO SCH (09:00)
[2019-09-05] MEDS: LOSARTAN POTASSIUM 25 MG TABLET PO SCH (09:00)
[2019-09-05] MEDS: METOPROLOL TARTRATE 25MG TABLET PO SCH (09:18)
[2019-09-05] MEDS: DOCUSATE SODIUM SUGAR FREE 100MG/10ML UDC NG SCH ×2 (09:18→18:21)
[2019-09-05] MEDS: METHYLPREDNISOLONE SOD SUCC 40 MG/ML VIAL IV SCH (09:19)
[2019-09-05] MEDS: LEVETIRACETAM 500MG PREMIX 100 ML IV SCH (09:19)
[2019-09-05] MEDS: FAMOTIDINE 20MG/2ML VIAL IV SCH (09:19)
[2019-09-05 10:55] LABS: PLATELET ESTIMATE INCREASED
[2019-09-05] MEDS ORDERED: LEVETIRACETAM 500MG TABLET PO SCH (13:00)
[2019-09-06] MEDS ORDERED: METHYLPREDNISOLONE SOD SUCC 40 MG/ML VIAL IV SCH (09:00)
== END 2019-09-05 20:45 | DRG 710 ==
LOC: EDBD 06:16 → ER 06:16 → MICUSO 08:28 → EDBEDREQTM 08:31 → EDBEDREQ 08:31 → ENRESERV 09:04 → MICUSO 09:27 → UNDOADMIN 09:27 → MICUNO 08-15 13:00 → 5EST 08-31 01:15
PROVIDERS: ADMIT Internal Medicine; ATTEND Internal Medicine
PROC: 00B70ZZ Excision of Cerebral Hemisphere, Open Approach (ICD-10-PCS; 2019-08-15)
PROC: B548ZZA Ultrasonography of Superior Vena Cava, Guidance (ICD-10-PCS; 2019-08-15)
PROC: 00U207Z Supplement Dura Mater with Autologous Tissue Substitute, Open Approach (ICD-10-PCS; 2019-08-15)
PROC: 02HV33Z Insertion of Infusion Device into Superior Vena Cava, Percutaneous Approach (ICD-10-PCS; principal; 2019-08-16)
PROC: 009600Z Drainage of Cerebral Ventricle with Drainage Device, Open Approach (ICD-10-PCS; 2019-08-16)
PROC: 00U207Z Supplement Dura Mater with Autologous Tissue Substitute, Open Approach (ICD-10-PCS; 2019-08-16)
PROC: 00C10ZZ Extirpation of Matter from Cerebral Meninges, Open Approach (ICD-10-PCS; 2019-08-16)
PROC: 00B70ZZ Excision of Cerebral Hemisphere, Open Approach (ICD-10-PCS; 2019-08-16)
PROC: 4A107BD Monitoring of Intracranial Pressure, Via Natural or Artificial Opening (ICD-10-PCS; 2019-08-16)
PROC: 0BH17EZ Insertion of Endotracheal Airway into Trachea, Via Natural or Artificial Opening (ICD-10-PCS; 2019-08-16)
PROC: 5A1955Z Respiratory Ventilation, Greater than 96 Consecutive Hours (ICD-10-PCS; 2019-08-16)
PROC: 5A09357 Assistance with Respiratory Ventilation, Less than 24 Consecutive Hours, Continuous Positive Airway Pressure (ICD-10-PCS; 2019-08-23)
PROC: 0DH63UZ Insertion of Feeding Device into Stomach, Percutaneous Approach (ICD-10-PCS; 2019-09-04)
DX: A41.9 Sepsis, unspecified organism (principal); I61.9 Nontraumatic intracerebral hemorrhage, unspecified; I63.9 Cerebral infarction, unspecified; R40.20 Unspecified coma; J96.01 Acute respiratory failure with hypoxia; J15.0 Pneumonia due to Klebsiella pneumoniae; K56.609 Unspecified intestinal obstruction, unspecified as to partial versus complete obstruction; K85.90 Acute pancreatitis without necrosis or infection, unspecified; E87.3 Alkalosis; E72.20 Disorder of urea cycle metabolism, unspecified; G93.40 Encephalopathy, unspecified; D69.6 Thrombocytopenia, unspecified; I48.0 Paroxysmal atrial fibrillation; D32.0 Benign neoplasm of cerebral meninges; R73.9 Hyperglycemia, unspecified; R00.0 Tachycardia, unspecified; R40.2430 Glasgow coma scale score 3-8, unspecified time; G81.94 Hemiplegia, unspecified affecting left nondominant side; D64.9 Anemia, unspecified; E03.9 Hypothyroidism, unspecified; E87.0 Hyperosmolality and hypernatremia; E87.6 Hypokalemia; I11.9 Hypertensive heart disease without heart failure; K56.7 Ileus, unspecified; R13.12 Dysphagia, oropharyngeal phase; T38.0X5A Adverse effect of glucocorticoids and synthetic analogues, initial encounter; Z87.891 Personal history of nicotine dependence; Z79.899 Other long term (current) drug therapy
CPT/HCPCS: 36415; 36600; 70496; 70553; 71045; 74018; 74176; 76700; 76937; 80048; 80053; 80076; 80156; 80165; 80184; 80185; 80202; 80320; 81003; 82140; 82375; 82550; 82805; 82962; 83036; 83735; 83880; 84100; 84295; 84439; 84443; 84478; 84481; 84484; 85014; 85018; 85025; 85027; 86850; 86900; 86920; 87070; 87077; 87186; 88304; 88309; 93005; 93306; 93970; 94003; 94640; 94667; 97161; 99291; A9577; C1713; C1725; C9113; J0690; J0692; J0696; J1100; J1165; J1170; J1815; J1940; J1953; J2150; J2185; J2250; J2270; J2370; J2405; J2543; J2704; J2710; J2765; J2920; J3010; J3370; J3480; J3490; J7030; J7042; J7050; J7060; J7120; J7608; J7620; J7626; P9041; P9047; Q9957; Q9967; A4315; G0480